=== PATIENT | female | born 1990 | race Caucasian/White ===

== ENCOUNTER 2021-11-30 03:37 | Emergency (ER) | payer MEDICAID ==
[~2021-11-30] VITALS: Ht 172.7 cm; Wt 81.8 kg
[2021-11-30 03:39] VITALS: BP 114/78
== END 2021-11-30 04:14 | disposition home or self-care (01) ==
LOC: ER 03:38
DX: Z72.89 Other problems related to lifestyle
CPT/HCPCS: 99283